=== PATIENT | female | born 2000 | race Native Hawaiian/Other Pacific Islander ===

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

== ENCOUNTER 2020-10-25 15:39 | Emergency (ER) | payer MEDICAID ==
[2020-10-25 16:07] VITALS: BP 138/72
--- NOTE | 2020-10-25 17:43 | Event Note ---
ED Screening Note Date of service: 10/25/20 Time: 17:42 ED Screening Note: 19-year-old female patient with history of lupus presents to the emergency department with complaints of dizziness and numbness "all over" starting today. Patient states symptoms began after she took Benadryl. Patient is not currently on steroids for her lupus. States she has not been on steroids in over 1 year. No recent fall, trauma, or injury. Endorses 1 episode of vomiting this morning. Tachycardic in triage. General: Awake, appropriately interactive, no acute distress. Neck: Supple. Full range of motion intact. Cardiovascular: Normal peripheral perfusion. Pulmonary: No respiratory distress. Patient is speaking normally without use of accessory muscles. Skin: No apparent rashes or lesions. Neurological: No facial asymmetry. Speech is clear. Follows commands. Patient is alert and oriented. Musculoskeletal: Moves all four extremities spontaneously with normal range of motion. Psych: Cooperative. Appropriate mood and affect. I have greeted and performed a focused rapid initial assessment of this patient. A comprehensive ED assessment and evaluation of the patient, analysis of all test results, and completion of the medical decision-making process will be conducted by additional ED providers. This initial assessment/diagnostic orders/clinical plan/treatment(s) is/are subject to change based on patients health status, clinical progression and re-assessment. Further treatment and workup at subsequent clinical provider's discretion. Patient/guardian urged not to elope from the ED as their condition may be serious if not clinically assessed and managed.
[2020-10-25 18:44] LABS: Basophils % (Auto) 0.3 % (0.0-1.8); Eosinophils % (Auto) 0.1 % (0.0-4.3); Hematocrit 34.8 % (30.3-42.9); Hemoglobin 10.9 gm/dl (10.1-14.3); Lymphocytes # (Auto) 1.1 K/mm3 (1.2-5.4); Lymphocytes % (Auto) 14.9 % (13.4-35.0); Mean Corpuscular HGB Conc 31 % (30-34); Mean Corpuscular Volume 73 fl (79-97); Monocytes # (Auto) 0.4 K/mm3 (0.0-0.8); Monocytes % (Auto) 5.5 % (0.0-7.3); Platelet Count 309 K/mm3 (140-440); Red Blood Count 4.74 M/mm3 (3.65-5.03); Red Cell Distribution Width 17.4 % (13.2-15.2)
[2020-10-25 18:48] LABS: Bilirubin,Urine NEG (Negative); Blood,Urine NEG (Negative); Color,Urine Straw (Yellow); Protein,Urine <15 mg/dL mg/dL (Negative); Urobilinogen,Urine < 2.0 mg/dL (<2.0)
[2020-10-25 18:54] LABS: RBC,Urine < 1.0 /HPF (0.0-6.0)
[2020-10-25 19:03] LABS: Alanine Aminotransferase 40 units/L (7-56); Albumin 4.2 g/dL (3.9-5); Blood Urea Nitrogen 11 mg/dL (7-17); Calcium 9.2 mg/dL (8.4-10.2); Hemolysis Index 3
[2020-10-25 19:05] LABS: BUN/Creatinine Ratio 18
--- NOTE | 2020-10-25 22:58 | Emergency Department Report ---
ED General Adult HPI - General Chief complaint: Medical Clearance Stated complaint: DIZZINESS PUI?: No Time Seen by Provider: 10/25/20 21:35 Source: patient Mode of arrival: Ambulatory Limitations: No Limitations - History of Present Illness Initial comments: 19-year-old female with asthma department complaining of taking some Midol and Benadryl about 3 hours prior to arrival after doing so she began to feel some tingling and twitching to her hands and her body which is been fluctuated with moving around. She reports no nausea, no vomiting, fever, chills, sweats, notes no chest pain or palpitations, no hives, no lip swelling, no odynophagia or dysphagia -: Gradual Radiation: non-radiation Severity scale (0 -10): 0 Consistency: constant Improves with: none Worsens with: none Associated Symptoms: denies: chest pain, cough, diaphoresis, loss of appetite, malaise, nausea/vomiting, rash, seizure, shortness of breath, syncope, weakness Treatments Prior to Arrival: NSAID - Related Data Previous Rx's Medication Instructions Recorded Last Taken Type Loratadine (Nf) [Claritin] 10 mg PO DAILY PRN #20 tablet 04/07/15 Unknown Rx Amoxicillin [Amoxicillin TAB] 875 mg PO BID #14 tablet 05/10/15 Unknown Rx Fluticasone [Flonase] 1 spray NS QDAY #1 bottle 05/10/15 Unknown Rx Ibuprofen [Motrin] 600 mg PO Q8H PRN #15 tablet 05/10/15 Unknown Rx predniSONE [Deltasone] 20 mg PO QDAY #5 tab 05/10/15 Unknown Rx Ibuprofen [Motrin] 600 mg PO Q8H PRN #20 tablet 12/21/18 Unknown Rx Ondansetron [Zofran Odt] 4 mg PO Q8HR PRN #12 tab.rapdis 12/21/18 Unknown Rx Sulfamethoxazole/Trimethoprim 1 each PO BID #14 tablet 12/21/18 Unknown Rx [Bactrim DS TAB] Allergies Allergy/AdvReac Type Severity Reaction Status Date / Time No Known Allergies Allergy Verified 10/25/20 16:06 ED Review of Systems ROS: Stated complaint: DIZZINESS Other details as noted in HPI Comment: All other systems reviewed and negative ED Past Medical Hx - Past Medical History Hx Diabetes: No Hx Renal Disease: No Hx Sickle Cell Disease: No Hx Seizures: No Hx Asthma: No Hx HIV: No Additional medical history: lupus - Surgical History Additional Surgical History: none - Social History Smoking Status: Never Smoker Substance Use Type: None - Medications Home Medications: Home Medications Medication Instructions Recorded Confirmed Last Taken Type Loratadine (Nf) [Claritin] 10 mg PO DAILY PRN #20 tablet 04/07/15 Unknown Rx Amoxicillin [Amoxicillin TAB] 875 mg PO BID #14 tablet 05/10/15 Unknown Rx Fluticasone [Flonase] 1 spray NS QDAY #1 bottle 05/10/15 Unknown Rx Ibuprofen [Motrin] 600 mg PO Q8H PRN #15 tablet 05/10/15 Unknown Rx predniSONE [Deltasone] 20 mg PO QDAY #5 tab 05/10/15 Unknown Rx Ibuprofen [Motrin] 600 mg PO Q8H PRN #20 tablet 12/21/18 Unknown Rx Ondansetron [Zofran Odt] 4 mg PO Q8HR PRN #12 tab.rapdis 12/21/18 Unknown Rx Sulfamethoxazole/Trimethoprim 1 each PO BID #14 tablet 12/21/18 Unknown Rx [Bactrim DS TAB] ED Physical Exam - General Limitations: No Limitations General appearance: alert, in no apparent distress - Head Head exam: Present: atraumatic, normocephalic - Eye Eye exam: Present: normal appearance - ENT ENT exam: Present: mucous membranes moist - Neck Neck exam: Present: normal inspection, other (Acanthosis nigricans appreciated) - Respiratory Respiratory exam: Present: normal lung sounds bilaterally. Absent: respiratory distress - Cardiovascular Cardiovascular Exam: Present: regular rate, normal rhythm. Absent: tachycardia (No tachycardia during examination heart rate low 90s), systolic murmur, diastolic murmur, rubs, gallop - GI/Abdominal GI/Abdominal exam: Present: soft, normal bowel sounds - Extremities Exam Extremities exam: Present: normal inspection - Back Exam Back exam: Present: normal inspection. Absent: CVA tenderness (R), CVA tenderness (L) - Neurological Exam Neurological exam: Present: alert, oriented X3, CN II-XII intact, normal gait, r eflexes normal. Absent: motor sensory deficit - Psychiatric Psychiatric exam: Present: normal affect, normal mood - Skin Skin exam: Present: warm, dry, intact, normal color. Absent: rash ED Course Vital Signs 10/25/20 10/25/20 10/26/20 16:06 16:07 02:00 Temperature 98.3 F 98.2 F Pulse Rate 113 H 107 H 77 Respiratory 18 18 16 Rate Blood Pressure 138/72 Blood Pressure 138/72 [Right] O2 Sat by Pulse 100 100 99 Oximetry ED Medical Decision Making - Lab Data Result diagrams: 10/25/20 18:11 10/25/20 18:11 Critical care attestation.: If time is entered above; I have spent that time in minutes in the direct care of this critically ill patient, excluding procedure time. ED Disposition Clinical Impression: Neuropathy Disposition: DC-01 TO HOME OR SELFCARE Is pt being admited?: No Does the pt Need Aspirin: No Condition: Stable Instructions: Paresthesia, Paresthesia, [id number] Additional Instructions: Please follow-up with your primary care provider for definitive management and refrain from the combination of medication which preceded the exacerbation of this tingling episodes. No evidence of any emergent or urgent medical condition was discovered on this visit Referrals: [facility] [Provider Group] - 3-5 Days PRIMARY CARE, [Primary Care Provider] - 3-5 Days
== END 2020-10-26 02:00 | disposition home or self-care (01) ==
LOC: ED 15:39
DX: R42 Dizziness and giddiness (principal); Z79.1 Long term (current) use of non-steroidal anti-inflammatories (NSAID); Z79.2 Long term (current) use of antibiotics; Z79.899 Other long term (current) drug therapy
CPT/HCPCS: 36415; 80053; 81001; 83735; 84703; 85025